=== PATIENT | female | born 1995 | race Caucasian/White ===

== ENCOUNTER → 2017-07-14 | Outpatient (CLI) | payer OTHER ==
[~2017-07-14] MED LIST: ACET325UDC; ALBU2SYA PO; SULTRIEL PO
[2017-07-14 07:54] LABS: Source, Urine Clean Catch; Specimen Source URINE
[2017-07-14 09:23] LABS: Bilirubin, Urine Neg (Neg); Blood, Urine 4+ (Neg); Glucose Qualitative, Urine Neg (Neg); Ketones, Urine Neg (Neg); Leukocyte Esterase, Urine 2+ (Neg); Nitrite, Urine Neg (Neg); Protein, Urine 2+ (Neg); Urobilinogen, Urine NORM (Normal)
[2017-07-14 09:34] LABS: Appearance, Urine Hazy (Clear); Color, Urine Pale Yellow (P-Yellow)
[2017-07-14 09:37] LABS: White Blood Cells, Urine TNTC /hpf (0-5)
[2017-07-14 09:38] LABS: Bacteria Mod /hpf; Squamous Epithelial Cells Mod /hpf (Few)
[2017-07-14 09:39] LABS: Amorphous Light (0-Heavy); Mucus Light (0-Heavy)
[2017-07-15 02:23] LABS: Source Urine
== END | disposition home or self-care (01) ==
LOC: LAB 07:48
PROVIDERS: Internal Medicine
DX: R30.0 Dysuria (principal)
CPT/HCPCS: 81001; 87077; 87086; 87186; 87491; 87591

== ENCOUNTER → 2019-01-27 | Outpatient (CLI) | payer OTHER | END | disposition home or self-care (01) | LOC: LAB SHORT 15:57 → LAB EV 15:57 | DX: R35.0 Frequency of micturition (principal) | CPT/HCPCS: 87086 ==

== ENCOUNTER 2019-09-18 16:35 | Observation (INO) | payer OTHER ==
[~2019-09-18] VITALS: Ht 162.6 cm; Wt 52.2 kg
[~2019-09-18 16:35] MED LIST changes: -ACET325 PO; -DOCU100 PO; -IBUP800 PO; -OXYC5 PO; -SENN187 PO
[2019-09-18 17:30] LABS: BASOPHILS ABSOLUTE AUTO 0.13 K/mm3 (0.00-0.23); BASOPHILS PERCENT AUTO 1 % (0-2); EOSINOPHILS ABSOLUTE AUTO 0.02 K/mm3 (0.00-0.68); EOSINOPHILS PERCENT AUTO 0 % (0-6); Hematocrit 39.8 % (33.0-51.0); Hemoglobin 12.9 g/dL (11.5-16.0); IMMATURE GRAN ABSOLUTE AUTO 0.18 K/mm3 (0.00-0.10); IMMATURE GRAN PERCENT AUTO 1 % (0-1); LYMPHOCYTES ABSOLUTE AUTO 1.39 K/mm3 (0.84-5.20); LYMPHOCYTES PERCENT AUTO 5 % (21-46); MONOCYTES ABSOLUTE AUTO 1.52 K/mm3 (0.16-1.47); MONOCYTES PERCENT AUTO 6 % (4-13); Mean Corpuscular HGB 30.2 pg (26.0-34.0); Mean Corpuscular HGB Conc 32.4 g/dL (31.5-36.5); Mean Corpuscular Volume 93 fL (80-100); Mean Platelet Volume 10.2 fL (9.1-12.4); NEUTROPHILS ABSOLUTE AUTO 22.94 K/mm3 (1.96-9.15); NEUTROPHILS PERCENT AUTO 88 % (41-73); Platelet Count 277 K/mm3 (150-400); RDW Coefficient Variation 12.7 % (11.7-14.2); RDW Standard Deviation 43.5 fL (35.1-46.3); Red Blood Cell Count 4.27 M/mm3 (3.80-5.20); White Blood Cell Count 26.18 K/mm3 (4.00-11.30)
[2019-09-18 18:10] LABS: Alanine Aminotransfer (ALT/SGP 24 U/L (12-78); Albumin, Blood 4.1 g/dL (3.4-5.0); Albumin/Globulin Ratio 1.1 (0.8-1.8); Alk Phos 42 U/L (50-136); Anion Gap 7 mmol/L (6-16); Aspartate Aminotrans (AST/SGOT 17 U/L (12-37); Bilirubin, Total 1.9 mg/dL (0.1-1.0); Blood Urea Nitrogen 16 mg/dL (8-24); Bun/Creatinine Ratio 20.4 (12.0-20.0); CO2, Blood 23 mmol/L (21-32); Calcium, Blood 8.8 mg/dL (8.5-10.1); Chloride, Blood 108 mmol/L (98-108); Creatinine, Blood 0.78 mg/dL (0.40-1.00); Globulin, Blood 3.7 g/dL (2.2-4.0); Glomerular Filtration Rate >60 (60-); Glucose, Blood 104 mg/dL (70-99); Potassium, Blood 3.9 mmol/L (3.5-5.5); Sodium, Blood 138 mmol/L (136-145); Total Protein, Blood 7.8 g/dL (6.4-8.2)
--- NOTE | 2019-09-18 21:08 | NUR ---
09/18/19 210 Lukasz Lawrence NO PRE-OP ANTIBIOTICS ORDERED.
--- NOTE | 2019-09-18 22:30 | NUR ---
PT RECOVERED IN ICU 2. REPORT GIVEN TO AMARILIS ALVARENGA WHO WILL ASSUME CARE. PT IS A/OX4. FOLLOWS COMMANDS. ON RA, DENIES SOB. FATHER ACCOMPANIES PT.
--- NOTE | 2019-09-19 05:32 | NUR ---
PATIENT ADMITTED AT 2300, ER, OR, ICU FOR RECOVERY AND ADMITTED TO 226. SHE ARRIVED WITH HER FATHER WHO IS ATTENTIVE. 3 LAP SITES SEEN, 2 WITH STERI STRIPS OVER THE SURGICAL SITE. NO BLEEDING, NO DRAINAGE. NO COMPLAINTS OF NAUSEA OR VOMITING. MEDICATED PER EMAR. SAUL CATH WITH CLEAR YELLOW URINE, THIS WAS REMOVED WITH THE 4AM VS AND LABS. PATIENT COMPLAINS OF CHEST DISCOMFORT IN HER RIGHT AND LEFT UPPER CHEST WITHOUT RADIATION. NO ACUTE CHAGNES. CALL LIGHT IN REACH.
[2019-09-19 10:25] LABS: Source, Urine Catheter
[2019-09-19 10:36] LABS: BASOPHILS ABSOLUTE AUTO 0.02 K/mm3 (0.00-0.23); BASOPHILS PERCENT AUTO 0 % (0-2); EOSINOPHILS PERCENT AUTO 0 % (0-6); Hemoglobin 8.9 g/dL (11.5-16.0); IMMATURE GRAN ABSOLUTE AUTO 0.05 K/mm3 (0.00-0.10); IMMATURE GRAN PERCENT AUTO 0 % (0-1); LYMPHOCYTES ABSOLUTE AUTO 0.92 K/mm3 (0.84-5.20); LYMPHOCYTES PERCENT AUTO 7 % (21-46); MONOCYTES ABSOLUTE AUTO 1.39 K/mm3 (0.16-1.47); MONOCYTES PERCENT AUTO 11 % (4-13); Mean Corpuscular HGB 30.6 pg (26.0-34.0); Mean Corpuscular Volume 93 fL (80-100); Mean Platelet Volume 10.3 fL (9.1-12.4); NEUTROPHILS ABSOLUTE AUTO 10.48 K/mm3 (1.96-9.15); NEUTROPHILS PERCENT AUTO 81 % (41-73); Platelet Count 182 K/mm3 (150-400); RDW Coefficient Variation 12.6 % (11.7-14.2); Red Blood Cell Count 2.91 M/mm3 (3.80-5.20); White Blood Cell Count 12.86 K/mm3 (4.00-11.30)
[2019-09-19 10:55] LABS: Bilirubin, Urine Neg (Neg); Blood, Urine 5+ (Neg); Glucose Qualitative, Urine Neg (Neg); Ketones, Urine 3+ (Neg); Leukocyte Esterase, Urine 1+ (Neg); Nitrite, Urine Neg (Neg); Protein, Urine 1+ (Neg); Specific Gravity, Urine 1.015 (1.003-1.022); Urobilinogen, Urine NORM (Normal); pH, Urine 6.5 (5.0-8.0)
[2019-09-19 10:56] LABS: Appearance, Urine Hazy (Clear); Color, Urine Yellow (P-Yellow)
[2019-09-19 10:57] LABS: Bacteria Rare /hpf; Squamous Epithelial Cells Mod /hpf (Few)
--- NOTE | 2019-09-19 11:25 | NUR ---
AT APROX 0900 ORTHOSTATIC VS TAKEN PER MD ORDER, PT FOUND TO BE HYPOTENSIVE AND TACHYCARDIC UPON [id number], DR MOREL NOTIFIED, ORDERS FOR 1000ML BOLUS AND CBC. BOLUS ADMINISTERED, PT STATES SHE IS FEELING BETTER AT THIS TIME, DENIES DIZZINESS. REPORTS PAIN 2/10 DOWN FROM 5/10 FOLLOWING ADMINISTRATION OF PAIN MEDICATION THIS AM PER EMAR.
[2019-09-19] MEDS ORDERED: OXYC5 PO ×2 (15:53)
[2019-09-19] MEDS ORDERED: ACET325 PO ×2 (17:25)
[2019-09-19] MEDS ORDERED: SENN187 PO ×2 (17:25)
[2019-09-19] MEDS ORDERED: DOCU100 PO ×2 (17:25)
[2019-09-19] MEDS ORDERED: IBUP800 PO ×2 (17:26)
--- NOTE | 2019-09-19 17:43 | NUR ---
DISCHARGE PT DISCHARGED HOME WITH FATHER AT SIDE. PT EDUCATED ON AND RECEIVED PRINTED DISCHARGE INSTRUCTIONS AND VERBALIZED AN UNDERSTANDING. IVS MARIA DEL CARMEN'Yovani. HARD RX FOR OXYCODONE GIVEN TO PT. PT LEFT WITH ALL PERSONAL BELONGINGS AND ESCORTED OUT VIA W/C BY CLAIMS ADMINISTRATOR.
== END 2019-09-19 17:45 | disposition home or self-care (01) ==
LOC: ER 16:35 → ERHOLD 19:31 → SURS 22:42
PROVIDERS: Emergency Medicine; ADMIT Obstetrics & Gynecology
DX: N83.12 Corpus luteum cyst of left ovary (principal); K66.1 Hemoperitoneum
CPT/HCPCS: 36415; 76856; 80053; 81001; 83690; 84702; 85025; 86850; 86900; 86901; 87077; 87086; 87186; 88305; 96361-59; 96374-59; 96375; 96375-59; 96376; 99284-25; A9270; G0378; J1100; J1885; J2250; J2405; J2704; J2710; J3010; J7030; J7120

== ENCOUNTER → 2019-09-18 | Outpatient (CLI) | payer OTHER ==
[~2019-09-18] MED LIST changes: +ACET325 PO; +DOCU100 PO; +IBUP800 PO; +OXYC5 PO; +SENN187 PO
[2019-09-18 18:33] LABS: BASOPHILS ABSOLUTE AUTO 0.11 K/mm3 (0.00-0.23); BASOPHILS PERCENT AUTO 1 % (0-2); EOSINOPHILS ABSOLUTE AUTO 0.06 K/mm3 (0.00-0.68); EOSINOPHILS PERCENT AUTO 0 % (0-6); Hemoglobin 12.7 g/dL (11.5-16.0); IMMATURE GRAN ABSOLUTE AUTO 0.12 K/mm3 (0.00-0.10); IMMATURE GRAN PERCENT AUTO 1 % (0-1); LYMPHOCYTES ABSOLUTE AUTO 1.84 K/mm3 (0.84-5.20); LYMPHOCYTES PERCENT AUTO 9 % (21-46); MONOCYTES ABSOLUTE AUTO 1.49 K/mm3 (0.16-1.47); MONOCYTES PERCENT AUTO 7 % (4-13); Mean Corpuscular HGB 30.5 pg (26.0-34.0); Mean Corpuscular HGB Conc 32.6 g/dL (31.5-36.5); Mean Corpuscular Volume 94 fL (80-100); Mean Platelet Volume 10.5 fL (9.1-12.4); NEUTROPHILS ABSOLUTE AUTO 17.99 K/mm3 (1.96-9.15); NEUTROPHILS PERCENT AUTO 83 % (41-73); Platelet Count 284 K/mm3 (150-400); RDW Coefficient Variation 12.8 % (11.7-14.2); Red Blood Cell Count 4.17 M/mm3 (3.80-5.20); White Blood Cell Count 21.61 K/mm3 (4.00-11.30)
[2019-09-18 19:03] LABS: Alanine Aminotransfer (ALT/SGP 24 U/L (12-78); Albumin, Blood 4.2 g/dL (3.4-5.0); Albumin/Globulin Ratio 1.3 (0.8-1.8); Alk Phos 41 U/L (50-136); Anion Gap 8 mmol/L (6-16); Aspartate Aminotrans (AST/SGOT 13 U/L (12-37); Bilirubin, Total 1.8 mg/dL (0.1-1.0); Blood Urea Nitrogen 16 mg/dL (8-24); Bun/Creatinine Ratio 20.1 (12.0-20.0); CO2, Blood 24 mmol/L (21-32); Calcium, Blood 8.9 mg/dL (8.5-10.1); Chloride, Blood 106 mmol/L (98-108); Globulin, Blood 3.3 g/dL (2.2-4.0); Glomerular Filtration Rate >60 (60-); Glucose, Blood 113 mg/dL (70-99); Potassium, Blood 3.8 mmol/L (3.5-5.5); Sodium, Blood 138 mmol/L (136-145); Total Protein, Blood 7.5 g/dL (6.4-8.2)
== END | disposition home or self-care (01) ==
LOC: LAB 18:13 → LAB SHORT 18:13
PROVIDERS: Family Medicine
DX: R10.9 Unspecified abdominal pain (principal)
CPT/HCPCS: 80053; 85025; 87086

== ENCOUNTER → 2019-10-07 | Outpatient (CLI) | payer OTHER ==
[~2019-10-07] MED LIST changes: +ACET325 PO; +DOCU100 PO; +IBUP800 PO; +OXYC5 PO; +SENN187 PO
[2019-10-08 10:41] LABS: Candida species (DNA Probe) Negative (NEGATIVE); G. vaginalis (DNA Probe) Positive (NEGATIVE); T. vaginalis (DNA Probe) Negative (NEGATIVE)
== END | disposition home or self-care (01) ==
LOC: LAB 19:16 → LAB SHORT 19:16
PROVIDERS: Obstetrics & Gynecology
DX: Z01.411 Encounter for gynecological examination (general) (routine) with abnormal findings (principal); Z11.3 Encounter for screening for infections with a predominantly sexual mode of transmission; N39.0 Urinary tract infection, site not specified; N89.8 Other specified noninflammatory disorders of vagina
CPT/HCPCS: 87086; 87480; 87510; 87660

== ENCOUNTER → 2021-07-23 | Outpatient (CLI) | payer OTHER ==
[2021-07-23 12:23] LABS: Source, Urine Urostomy Bag
[2021-07-23 13:06] LABS: Appearance, Urine Cloudy (Clear); Bilirubin, Urine Neg (Neg); Blood, Urine Neg (Neg); Color, Urine Yellow (P-Yellow); Glucose Qualitative, Urine Neg (Neg); Ketones, Urine 4+ (Neg); Leukocyte Esterase, Urine Neg (Neg); Nitrite, Urine Neg (Neg); Protein, Urine 1+ (Neg); Specific Gravity, Urine 1.025 (1.003-1.022); Urobilinogen, Urine NORM (Normal)
[2021-07-23 13:14] LABS: Bacteria Many /hpf; Red Blood Cells, Urine 0-2 /hpf (0-2); Squamous Epithelial Cells Rare /hpf (Few); White Blood Cells, Urine 0-2 /hpf (0-5)
== END ==
LOC: LAB SHORT 08:45
PROVIDERS: Registered Nurse Community Health
DX: Z34.91 Encounter for supervision of normal pregnancy, unspecified, first trimester (principal)
CPT/HCPCS: 81001; 87086

== ENCOUNTER → 2021-07-29 | Outpatient (CLI) | payer OTHER ==
[2021-07-29 12:15] LABS: BASOPHILS ABSOLUTE AUTO 0.07 K/mm3 (0.00-0.23); BASOPHILS PERCENT AUTO 1 % (0-2); EOSINOPHILS ABSOLUTE AUTO 0.05 K/mm3 (0.00-0.68); EOSINOPHILS PERCENT AUTO 1 % (0-6); Hemoglobin 14.3 g/dL (11.5-16.0); IMMATURE GRAN ABSOLUTE AUTO 0.04 K/mm3 (0.00-0.10); IMMATURE GRAN PERCENT AUTO 0 % (0-1); LYMPHOCYTES ABSOLUTE AUTO 1.42 K/mm3 (0.84-5.20); LYMPHOCYTES PERCENT AUTO 13 % (21-46); MONOCYTES ABSOLUTE AUTO 0.64 K/mm3 (0.16-1.47); MONOCYTES PERCENT AUTO 6 % (4-13); Mean Corpuscular HGB Conc 32.5 g/dL (31.5-36.5); Mean Corpuscular Volume 92 fL (80-100); Mean Platelet Volume 10.3 fL (9.1-12.4); NEUTROPHILS ABSOLUTE AUTO 8.83 K/mm3 (1.96-9.15); NEUTROPHILS PERCENT AUTO 80 % (41-73); Platelet Count 276 K/mm3 (150-400); RDW Coefficient Variation 12.6 % (11.7-14.2); RDW Standard Deviation 43.1 fL (35.1-46.3); Red Blood Cell Count 4.76 M/mm3 (3.80-5.20); White Blood Cell Count 11.05 K/mm3 (4.00-11.30)
[2021-07-30 06:11] LABS: HBSAG SCREEN Negative (Negative)
[2021-07-30 07:11] LABS: HIV AB/P24 AG SCREEN Non Reactive (Non Reactive)
== END ==
LOC: LAB 10:11 → LAB SHORT 10:11
PROVIDERS: Registered Nurse Community Health
DX: Z34.91 Encounter for supervision of normal pregnancy, unspecified, first trimester (principal)
CPT/HCPCS: 80055; 84443; 87389

== ENCOUNTER → 2021-08-23 | Outpatient (CLI) | payer OTHER ==
[2021-08-26 00:10] LABS: CHLAMYDIA TRACHOMATIS, NAA Negative (Negative)
== END ==
LOC: LAB 19:02 → LAB SHORT 19:02
PROVIDERS: Registered Nurse Community Health
DX: Z34.01 Encounter for supervision of normal first pregnancy, first trimester (principal)
CPT/HCPCS: 87491; 87591

== ENCOUNTER → 2021-11-05 | Outpatient (CLI) | payer OTHER | END | disposition home or self-care (01) | LOC: LAB 12:46 → LAB SHORT 12:46 | DX: O26.899 Other specified pregnancy related conditions, unspecified trimester (principal) | CPT/HCPCS: 87086 ==

== ENCOUNTER → 2021-12-23 | Outpatient (CLI) | payer OTHER ==
[2021-12-23 13:35] LABS: Hematocrit 39.6 % (33.0-51.0); Hemoglobin 12.7 g/dL (11.5-16.0)
== END | disposition home or self-care (01) ==
LOC: LAB SHORT 10:50 → LAB 10:50
PROVIDERS: Registered Nurse Community Health
DX: Z34.01 Encounter for supervision of normal first pregnancy, first trimester (principal)
CPT/HCPCS: 82950; 85014; 85018

== ENCOUNTER → 2022-02-17 | Outpatient (CLI) | payer OTHER | END | disposition home or self-care (01) | LOC: LAB 13:39 → LAB SHORT 13:39 | DX: Z34.93 Encounter for supervision of normal pregnancy, unspecified, third trimester (principal) | CPT/HCPCS: 87081; 87150 ==

== ENCOUNTER 2022-03-14 18:08 | Inpatient (IN) | payer OTHER ==
[~2022-03-14] VITALS: Ht 162.6 cm; Wt 73.0 kg
[2022-03-14] MEDS ORDERED: PRENATAL TABLE1 EAC2 PO (20:42)
[2022-03-14 20:46] LABS: BASOPHILS ABSOLUTE AUTO 0.07 K/mm3 (0.00-0.23); BASOPHILS PERCENT AUTO 1 % (0-2); EOSINOPHILS ABSOLUTE AUTO 0.17 K/mm3 (0.00-0.68); EOSINOPHILS PERCENT AUTO 1 % (0-6); Hematocrit 37.6 % (33.0-51.0); Hemoglobin 12.8 g/dL (11.5-16.0); IMMATURE GRAN ABSOLUTE AUTO 0.07 K/mm3 (0.00-0.10); IMMATURE GRAN PERCENT AUTO 1 % (0-1); LYMPHOCYTES ABSOLUTE AUTO 1.59 K/mm3 (0.84-5.20); LYMPHOCYTES PERCENT AUTO 11 % (21-46); MONOCYTES ABSOLUTE AUTO 1.11 K/mm3 (0.16-1.47); MONOCYTES PERCENT AUTO 8 % (4-13); Mean Corpuscular HGB 30.4 pg (26.0-34.0); Mean Corpuscular Volume 89 fL (80-100); Mean Platelet Volume 11.4 fL (9.1-12.4); NEUTROPHILS ABSOLUTE AUTO 11.21 K/mm3 (1.96-9.15); NEUTROPHILS PERCENT AUTO 79 % (41-73); Platelet Count 242 K/mm3 (150-400); RDW Coefficient Variation 13.8 % (11.7-14.2); RDW Standard Deviation 45.1 fL (35.1-46.3); Red Blood Cell Count 4.21 M/mm3 (3.80-5.20); White Blood Cell Count 14.22 K/mm3 (4.00-11.30)
[2022-03-15 07:03] LABS: Source, Urine Clean Catch
[2022-03-15 07:22] LABS: Bilirubin, Urine Neg (Neg); Blood, Urine 2+ (Neg); Glucose Qualitative, Urine Neg (Neg); Ketones, Urine Neg (Neg); Leukocyte Esterase, Urine Neg (Neg); Nitrite, Urine Neg (Neg); Protein, Urine 1+ (Neg); Urobilinogen, Urine NORM (Normal)
[2022-03-15 07:39] LABS: Appearance, Urine Clear (Clear); Bacteria Not Seen /hpf; Color, Urine Yellow (P-Yellow); Squamous Epithelial Cells Rare /hpf (Few); White Blood Cells, Urine Not Seen /hpf (0-5)
[2022-03-16 06:02] LABS: BASOPHILS ABSOLUTE AUTO 0.06 K/mm3 (0.00-0.23); BASOPHILS PERCENT AUTO 1 % (0-2); EOSINOPHILS ABSOLUTE AUTO 0.15 K/mm3 (0.00-0.68); EOSINOPHILS PERCENT AUTO 1 % (0-6); Hematocrit 23.4 % (33.0-51.0); Hemoglobin 7.7 g/dL (11.5-16.0); IMMATURE GRAN ABSOLUTE AUTO 0.09 K/mm3 (0.00-0.10); IMMATURE GRAN PERCENT AUTO 1 % (0-1); LYMPHOCYTES ABSOLUTE AUTO 1.99 K/mm3 (0.84-5.20); LYMPHOCYTES PERCENT AUTO 15 % (21-46); MONOCYTES ABSOLUTE AUTO 1.24 K/mm3 (0.16-1.47); MONOCYTES PERCENT AUTO 9 % (4-13); Mean Corpuscular HGB 30.2 pg (26.0-34.0); Mean Corpuscular HGB Conc 32.9 g/dL (31.5-36.5); Mean Corpuscular Volume 92 fL (80-100); Mean Platelet Volume 10.4 fL (9.1-12.4); NEUTROPHILS PERCENT AUTO 74 % (41-73); Platelet Count 156 K/mm3 (150-400); RDW Coefficient Variation 14.4 % (11.7-14.2); RDW Standard Deviation 47.8 fL (35.1-46.3); Red Blood Cell Count 2.55 M/mm3 (3.80-5.20); White Blood Cell Count 13.33 K/mm3 (4.00-11.30)
--- NOTE | 2022-03-16 14:06 | NUR ---
PRINTED DISCHARGE INSTRUCTIONS, REVIEWED WITH PATIENT AND . ANSWERED ADDITIONAL QUESTIONS AND CONCERNS. ID BANDS MATCHED WITH AND VERIFICATION FORM. DISCHARGE TO HOME TO CARE OF AT 1355.
== END 2022-03-16 13:55 | disposition home or self-care (01) | DRG 768 ==
LOC: BC 18:08 → OBS 18:08 → BC 18:14 → OBS 20:11 → BC 20:14
PROVIDERS: ADMIT Family Medicine
PROC: 10E0XZZ Delivery of Products of Conception, External Approach (ICD-10-PCS; principal; 2022-03-15)
PROC: 0DQR0ZZ Repair Anal Sphincter, Open Approach (ICD-10-PCS; 2022-03-15)
PROC: 3E0R3BZ Introduction of Anesthetic Agent into Spinal Canal, Percutaneous Approach (ICD-10-PCS; 2022-03-15)
PROC: 00HU33Z Insertion of Infusion Device into Spinal Canal, Percutaneous Approach (ICD-10-PCS; 2022-03-15)
PROC: 10907ZC Drainage of Amniotic Fluid, Therapeutic from Products of Conception, Via Natural or Artificial Opening (ICD-10-PCS; 2022-03-15)
DX: O48.0 Post-term pregnancy (principal); Z37.0 Single live birth; O70.20 Third degree perineal laceration during delivery, unspecified; Z3A.40 40 weeks gestation of pregnancy; Z79.899 Other long term (current) drug therapy
CPT/HCPCS: 36415; 51702; 81001; 85025; 86850; 86900; 86901; A9270; C9113; J1885; J2405; J2590; J3010; J7120

== ENCOUNTER → 2022-08-04 | Outpatient (CLI) | payer BC ==
[~2022-08-04] MED LIST changes: +PRENATAL TABLE1 EAC2 PO
== END | disposition home or self-care (01) ==
LOC: LAB 16:00 → LAB SHORT 16:00
PROVIDERS: Registered Nurse Community Health
DX: Z12.4 Encounter for screening for malignant neoplasm of cervix (principal)
CPT/HCPCS: G0145

== ENCOUNTER → 2023-01-03 | Outpatient (CLI) | payer BC | END | disposition home or self-care (01) | LOC: LAB 16:07 → LAB SHORT 16:07 | DX: Z34.91 Encounter for supervision of normal pregnancy, unspecified, first trimester (principal) | CPT/HCPCS: 86803 ==

== ENCOUNTER → 2023-01-24 | Outpatient (CLI) | payer BC ==
[2023-01-27 05:12] LABS: CHLAMYDIA TRACHOMATIS, NAA Negative (Negative)
== END ==
LOC: LAB 18:10 → LAB SHORT 18:10
PROVIDERS: Registered Nurse Community Health
DX: Z34.91 Encounter for supervision of normal pregnancy, unspecified, first trimester (principal); Z3A.00 Weeks of gestation of pregnancy not specified
CPT/HCPCS: 87491; 87591

== ENCOUNTER → 2023-05-24 | Outpatient (CLI) | payer BC ==
[2023-05-24 13:04] LABS: Hematocrit 35.5 % (33.0-51.0); Hemoglobin 11.5 g/dL (11.5-16.0)
== END | disposition home or self-care (01) ==
LOC: LAB SHORT 11:55 → LAB 11:55
PROVIDERS: Registered Nurse Community Health
DX: Z34.92 Encounter for supervision of normal pregnancy, unspecified, second trimester (principal)
CPT/HCPCS: 82950; 85014; 85018

== ENCOUNTER 2023-11-08 07:14 | Day surgery (SDC) | payer BC ==
[~2023-11-08] VITALS: Ht 162.6 cm; Wt 61.3 kg
[2023-11-08] MEDS ORDERED: Lactated Ringer's 1,000 ML IV SCH (07:35)
[2023-11-08] MEDS ORDERED: CeFAZolin Sodium 2,000 MG in NS 100 ML IV SCH (07:35)
[2023-11-08 07:56] VITALS: BP 114/69
[2023-11-08] MEDS ORDERED: propofoL 20 ML IV ONE (08:01)
[2023-11-08] MEDS ORDERED: FentaNYL Citrate 50 MCG/ML 2 ML Injection ONE (08:02)
[2023-11-08] MEDS ORDERED: Rocuronium Bromide 10 MG/ML 5ML Injection IV ONE (08:03)
[2023-11-08] MEDS ORDERED: Midazolam HCl 1MG / ML 2ML Vial IV ONE (08:10)
[2023-11-08] MEDS ORDERED: Lidocaine HCl 1% 5 ML SYR INJ ONE (08:10)
[2023-11-08] MEDS ORDERED: FentaNYL Citrate 50 MCG/ML 2 ML Injection IV PRN ×3 (08:15)
[2023-11-08] MEDS ORDERED: Ondansetron HCl 2 MG / ML 2ML Vial IV PRN (08:15)
--- NOTE | 2023-11-08 08:23 | NUR ---
History, Chart, Medications and Allergies reviewed before start of procedure. Pre-Op teaching done. Pt verbalizes understanding. Patient confirms NPO status and agrees with scheduled surgery. Lungs clear T/O to Auscultation. Patient reports completing Chlorhexadine shower X2 prior to admission to hospital.
--- NOTE | 2023-11-08 08:51 | NUR ---
PT AMB TO BATHROOM AND BACK.
[2023-11-08] MEDS ORDERED: Bupivacaine 0.5% Inj 10 ML Vial ONE (09:01)
[2023-11-08] MEDS ORDERED: Phenylephrine HCl 100 MCG/ML-NS 10MLSYR (1MG/10ML) ONE (09:25)
[2023-11-08] MEDS ORDERED: Dexamethasone Sod Phos 10 MG/ML 1ML VIAL ONE (09:29)
[2023-11-08] MEDS ORDERED: Ondansetron HCl 2 MG / ML 2ML Vial ONE (09:29)
[2023-11-08] MEDS ORDERED: Sugammadex Sodium 200 MG/2ML SDV (100 MG/ML) ONE (09:58)
[2023-11-08 10:30] VITALS: BP 109/71
[2023-11-08] MEDS ORDERED: HYDROcodone 5-APAP 325 TAB PO PRN (10:30)
[2023-11-08 10:35] VITALS: BP 100/55; BP 100/551
[2023-11-08 10:40] VITALS: BP 109/70
[2023-11-08 10:45] VITALS: BP 109/66
[2023-11-08 10:58] VITALS: BP 106/71
--- NOTE | 2023-11-08 11:25 | NUR ---
Discharge instructions reviewed with patient. Patient verbalizes understanding. Copy given to patient to take home. Dressing to procedure site clean, dry, intact with no visible drainage, swelling, erythema or bruising noted. Ice pack and emesis bag sent home with patient. Pt reports no nausea but is nervious about nausea later. Told her to contact if she has issues with nausea
== END 2023-11-08 11:28 | disposition home or self-care (01) ==
LOC: ORSCMMR 07:14 → ORD 08:45 → ORSCMMR 08:45
PROVIDERS: Surgery
PROC: 0WUF0JZ Supplement Abdominal Wall with Synthetic Substitute, Open Approach (ICD-10-PCS; principal; 2023-11-08 08:45)
DX: K42.9 Umbilical hernia without obstruction or gangrene (principal); K21.9 Gastro-esophageal reflux disease without esophagitis; D50.9 Iron deficiency anemia, unspecified
CPT/HCPCS: A9270; C1781; J0690; J1100; J2250; J2371; J2405; J2704; J3010; J7120